=== PATIENT | male | born 1955 | race Caucasian/White ===

== ENCOUNTER 2021-03-20 12:05 | Observation (INO) ==
[2021-03-20] MEDS ORDERED: 0.9 % Sodium Chloride 1,000 ML IV ONE (12:24)
[2021-03-20 13:12] LABS: Alanine Aminotransferase 40 Units/L (7-52); Albumin 4.6 g/dL (3.5-5.7); Albumin/Globulin Ratio 1.3 (1.1-2.2); Alkaline Phosphatase 94 Units/L (34-104); Aspartate Amino Transferase 61 Units/L (13-39); BUN/Creatinine Ratio 9 (6-26); Bilirubin,Total 1.6 mg/dL (0.3-1.0); Blood Urea Nitrogen 6 mg/dL (8-23); Calcium 9.5 mg/dL (8.6-10.3); Carbon Dioxide 24 mEq/L (23-29); Chloride 93 mEq/L (98-107); Globulin 3.5 g/dL (2.4-3.5); Glucose 166 mg/dL (70-105); Osmolality,Calculated 273 (280-300); Potassium 3.6 mEq/L (3.5-5.1); Sodium 131 mEq/L (136-145); Total Protein 8.1 g/dL (6.4-8.9); eGFR For African Americans > 60 (> 60); eGFR For Non-African Americans > 60 (> 60)
[2021-03-20 13:25] LABS: Hematocrit 44.4 % (37.5-50.1); Hemoglobin 15.4 g/dL (12.9-16.9); Immature Granulocytes % 0.4 % (0-4); Lymphocytes # 0.4 K/mcL (0.6-4.6); Mean Corpuscular HGB Conc 34.7 g/dL (31.6-35.5); Mean Corpuscular Hemoglobin 32.8 pg (28.0-33.3); Mean Corpuscular Volume 94.7 fL (83.0-100.0); Monocytes # 0.3 K/mcL (0.0-1.3); Monocytes % 4.3 %; Neutrophils # 6.1 K/mcL (1.6-8.9); Platelet Count 166 K/mcL (140-400); Red Blood Count 4.69 M/mcL (4.19-5.50); Red Cell Distribution Width 11.3 % (11.5-14.5); Segmented Neutrophils % 89.3 %; White Blood Count 6.8 K/mcL (4.3-11.1)
[2021-03-20] MEDS ORDERED: diazePAM 5 MG TABLET PO ONE (15:49)
[2021-03-20] MEDS ORDERED: Isovue-370 500 ML BOTTLE IVP ONE (19:02)
[2021-03-20] MEDS ORDERED: *HR* Labetalol 20 MG/4 ML SYRINGE IVP STA (20:30)
[2021-03-20] MEDS ORDERED: methylPREDNISolone 125 MG/2 ML VIAL IVP ONE (20:50)
[2021-03-20] MEDS ORDERED: Gadolinium Contrast Agent (WT Based) IV PRN (20:50)
[2021-03-20] MEDS ORDERED: Naloxone 0.4 MG/ML INJ IVP PRN (21:54)
[2021-03-20] MEDS: Acetaminophen 325 MG TABLET PO PRN (22:38)
[2021-03-20] MEDS ORDERED: *HR* Metoprolol 5 MG/5 ML VIAL IVP ONE (22:52)
[2021-03-20] MEDS: Ondansetron ODT 4 MG TAB.RAPDIS SL PRN (22:54)
[2021-03-20 23:38] LABS: Bilirubin,Urine Negative (Negative); Blood,Urine Negative (Negative); Clarity,Urine Clear (Clear); Color,Urine Colorless (Yellow); Glucose,Urine (UA) 50 mg/dL (Normal); Ketones,Urine Trace mg/dL (Negative); Leukocyte Esterase,Urine Negative (Negative); Nitrite,Urine Negative (Negative); Protein,Urine Negative (Neg-Trace); RBC,Urine 0-3 per hpf (0-3); Specific Gravity,Urine > 1.030 (1.010-1.025); Urobilinogen,Urine Normal (Normal); WBC,Urine 0-3 per hpf (0-3)
[2021-03-21] MEDS: Melatonin 3 MG TABLET PO SCH ×2 (00:12→21:48)
[2021-03-21] MEDS: amLODIPine 5 MG TABLET PO SCH ×2 (00:15→07:54)
[2021-03-21 05:04] LABS: Hematocrit 42.8 % (37.5-50.1); Immature Granulocytes % 0.5 % (0-4); Lymphocytes # 0.4 K/mcL (0.6-4.6); Lymphocytes % 7.1 %; Mean Corpuscular Hemoglobin 33.1 pg (28.0-33.3); Mean Corpuscular Volume 94.5 fL (83.0-100.0); Monocytes # 0.1 K/mcL (0.0-1.3); Monocytes % 2.1 %; Neutrophils # 5.6 K/mcL (1.6-8.9); Platelet Count 166 K/mcL (140-400); Red Blood Count 4.53 M/mcL (4.19-5.50); Red Cell Distribution Width 11.3 % (11.5-14.5); Segmented Neutrophils % 90.3 %; White Blood Count 6.2 K/mcL (4.3-11.1)
[2021-03-21 05:10] LABS: INR 1.1; Prothrombin Time 13.1 Seconds (9.4-12.1)
[2021-03-21 05:28] LABS: BUN/Creatinine Ratio 11 (6-26); Blood Urea Nitrogen 6 mg/dL (8-23); Calcium 8.8 mg/dL (8.6-10.3); Carbon Dioxide 23 mEq/L (23-29); Chloride 97 mEq/L (98-107); Chol/HDL Ratio 2.1 (0-4.9); Cholesterol 174 mg/dL (< 200); Glucose 184 mg/dL (70-105); HDL Cholesterol 84 mg/dL (40-59); LDL Cholesterol,Calculated 82 mg/dL (< 100); Magnesium 1.9 mg/dL (1.6-2.6); Osmolality,Calculated 270 (280-300); Potassium 3.7 mEq/L (3.5-5.1); Sodium 129 mEq/L (136-145); Triglycerides 42 mg/dL (< 150); eGFR For African Americans > 60 (> 60); eGFR For Non-African Americans > 60 (> 60)
[2021-03-21 05:35] LABS: Thyroid Stimulating Hormone 0.605 mcIU/mL (0.340-5.600)
[2021-03-21 06:14] LABS: Estimated Average Glucose 108 mg/dl; Hemoglobin A1C 5.4 %
[2021-03-21] MEDS: *HR* Enoxaparin 40 MG/0.4 ML SYRINGE SQ SCH (07:54)
[2021-03-21] MEDS: lisinopriL 20 MG TABLET PO SCH (07:54)
[2021-03-21] MEDS: Ondansetron ODT 4 MG TAB.RAPDIS SL PRN ×2 (07:59→21:59)
[2021-03-21] MEDS ORDERED: 0.9 % Sodium Chloride 1,000 ML IVC SCH (11:45)
[2021-03-21] MEDS: Acetaminophen 325 MG TABLET PO PRN (22:00)
[2021-03-22 05:55] LABS: Hematocrit 41.7 % (37.5-50.1); Hemoglobin 14.1 g/dL (12.9-16.9); Mean Corpuscular HGB Conc 33.8 g/dL (31.6-35.5); Mean Corpuscular Hemoglobin 32.9 pg (28.0-33.3); Mean Corpuscular Volume 97.2 fL (83.0-100.0); Mean Platelet Volume 9.1 fL (9.4-12.4); Platelet Count 159 K/mcL (140-400); Red Blood Count 4.29 M/mcL (4.19-5.50); Red Cell Distribution Width 11.8 % (11.5-14.5); White Blood Count 8.7 K/mcL (4.3-11.1)
[2021-03-22 06:16] LABS: BUN/Creatinine Ratio 18 (6-26); Blood Urea Nitrogen 13 mg/dL (8-23); Calcium 8.2 mg/dL (8.6-10.3); Carbon Dioxide 25 mEq/L (23-29); Chloride 99 mEq/L (98-107); Glucose 180 mg/dL (70-105); Osmolality,Calculated 279 (280-300); Potassium 3.5 mEq/L (3.5-5.1); Sodium 132 mEq/L (136-145); eGFR For African Americans > 60 (> 60); eGFR For Non-African Americans > 60 (> 60)
[2021-03-22] MEDS: *HR* Enoxaparin 40 MG/0.4 ML SYRINGE SQ SCH (07:43)
[2021-03-22] MEDS: amLODIPine 5 MG TABLET PO SCH (07:43)
[2021-03-22] MEDS: lisinopriL 20 MG TABLET PO SCH (07:43)
[2021-03-22 14:50] VITALS: BP 160/82; PULSE 102; TEMP 97.8; O2SAT 95
== END 2021-03-22 16:44 | disposition home or self-care (01) ==
LOC: EMEROOARM 12:05 → 3BNU 12:05 → SUATTDRO 21:30 → 3BNU 22:10
PROVIDERS: ADMIT Student in an Organized Health Care Education/Training Program; ATTEND Nurse Practitioner